=== PATIENT | female | born 1990 | race Caucasian/White ===

== ENCOUNTER 2025-02-25 07:25 | Emergency (ER) | payer OTHER, SELFPAY ==
[2025-02-25 07:27] VITALS: BP 149/97; PULSE 79; RESP 18; TEMP 36.6; O2SAT 100
--- NOTE | 2025-02-25 07:30 | ED.HA ---
HPI - Headache General Chief Complaint: Headache Stated Complaint: migraine for 3 days Time Seen by Provider: 02/25/25 07:30 Source: patient Mode of arrival: ambulatory Limitations: no limitations History of Present Illness HPI Narrative: 35-year-old female with a history of migraine presents to the ED with a 3 day history of -- bilateral moravian pain. She has 12-15 episodes a month. Was nausea without any vomiting. She has photophobia. This is similar to her usual migraine. A pain response to Imitrex. The patient ran out of Imitrex and presented to the ED. no focal neuro deficits. No history of head trauma. MD elicited complaint: headache Onset (ago): day(s) ( Four days) Onset description: gradually Location: temporal Severity: moderate Quality & Timing: aching and throbbing Exacerbating factors: none Relieving factors: nothing Context: occurred at rest Associated symptoms: none Treatments prior to arrival: none Related Data Home Medications ?Medication ?Instructions ?Recorded ?Confirmed ?Last Taken ?Type venlafaxine 150 mg 150 mg PO DAILY 02/25/25 Unknown History capsule,extended release 24 hr (Effexor XR) Allergies Allergy/AdvReac Type Severity Reaction Status Date / Time No Known Allergies Allergy Verified 02/25/25 07:34 Review of Systems Review of Systems: All systems reviewed & are unremarkable except as noted in HPI and below PMFSH Past Medical History Medical History (Updated 02/25/25 @ 08:33 by Chapincito Stephens MD) Migraine Exam Narrative: blood pressure 149/97 Const: General: no acute distress Nutritional Appearance: well nourished Orientation/consciousness: patient oriented x3 Limitations: no limitations HENMT: Head: normal to inspection Ears: external ears normal Face/Nose/Sinus: Normal external nose present Face and sinus: normal facial exam Mouth: Yes Normal oral and palatal mucosa present Throat: posterior oropharynx normal Eyes: Conjunctivae: conjunctivae normal Pupils: Equal, round and reactive pupils present EOM: EOMs intact bilaterally Direct Ophthalmoscopy: no photophobia Neck: Neck: normal visual inspection, no lymphadenopathy and no meningeal signs Chest: Chest palpation & inspection: normal inspection of the chest Resp: Effort & Inspection: normal respiratory effort Auscultation: clear to auscultation bilaterally Cardio: Rate: regular rate Rhythm: regular rhythm GI: GI Palp: Yes Soft to palpation Auscultation: normal bowel sounds Other: no tenderness/ rigidity/rebound : General: Yes no CVA tenderness Back/Spine/Pelvis: Back: no CVA tenderness Skin: General skin exam: normal color Rashes: no rashes Neuro: General: patient oriented x3, moves all extremities, no meningeal signs, no focal motor deficits and CN's II-XI intact bilaterally Cranial nerves: Yes Nystagmus not present Speech: normal speech Gait exam (Neuro): Normal gait present Extrem: General: normal to inspection and no clubbing, cyanosis or edema Psych: Mental Status: mental status grossly normal Affect: normal affect Attitude: cooperative Course Course Emergency Course: migraine/ bilateral headache- headache improved with Imitrex. The patient does not fulfill criteria for migraine. Vital Signs Vital signs: Vital Signs Temperature 36.6 C 02/25/25 07:27 Pulse Rate 79 02/25/25 07:27 Respiratory Rate 18 02/25/25 07:27 Blood Pressure 149/97 H 02/25/25 07:27 Pulse Oximetry 100 02/25/25 07:27 Oxygen Delivery Room Air 02/25/25 07:27 Temperature 36.6 C 02/25/25 07:27 Pulse Rate 79 02/25/25 07:27 Respiratory Rate 18 02/25/25 07:27 Blood Pressure 149/97 H 02/25/25 07:27 Pulse Oximetry 100 02/25/25 07:27 Oxygen Delivery Room Air 02/25/25 07:27 MDM - Headache MDM Narrative Medical decision making narrative: common migraine Differential Diagnosis Differential diagnosis: Likely tension headache Medical Records Attestation: I reviewed the patient's medical records. Lab Data Attestation: I reviewed the patient's lab results. Discharge Plan Discharge Clinical Impression: Migraine Patient Disposition: Home Condition: Stable Instructions: Antibiotic Form, Migraine Headache (ED) Additional Instructions: patient is scheduled to see her primary care physician today Patient Language: German Prescriptions: No Action venlafaxine [Effexor XR] 150 mg capsule,extended release 24hr 150 mg PO DAILY Follow-up/Referrals: Rick Guevara MD [Primary Care Provider] - Time of Disposition: 08:33
[2025-02-25] MEDS: ONDANSETRON HCL ODT 4 MG TABLET PO (07:38)
[2025-02-25] MEDS: SUMAtriptan SUCCINATE 6 MG/0.5 ML VIAL SUB-Q (07:38)
--- OUTSIDE RECORDS SUMMARY | 2025-02-25 08:09 | XMS_ITS | Clinical Summary ---
Author Organization [facility] Address [id number] [place] [id number] Phone Care Team Providers Care Studio Assistant Name Role Phone Unavailable Primary Care Provider Unavailabl e Allergies No known active allergies Medications acetaminophen (TYLENOL) 325 mg tablet Take 1 Tablet (325 mg) by mouth every 6 hours. 01/04/2023 Active ferrous sulfate 325 mg (65 mg iron) tablet Take 1 Tablet (325 mg) by mouth every other day. 30 Tablet 01/04/2023 3:08 PM FATBACK TRIMMER 01/04/2023 Active multivitamin (DAILY-LORI) tablet Take 1 Tablet by mouth daily. 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 No 01/02/2023 Food Insecurity Answer Date Recorded Social/Environmental Concerns No concerns Transportation Needs Answer Date Record ed Social/Environmental Concerns No concerns Housing Stability Answer Date Recorded Social/Environmental Concerns No concerns Utility Needs Answer Date Recorded Social/Environmental Concerns No concerns Comments No Sex and Gender Information Value Date Recorded Sex Assigned at Not on file Legal Sex Female 8:16 AM FATBACK TRIMMER Gender Identity Not on file Sexual Orientation Not on file Last Filed Vital Signs Vital Sign Reading Time Taken Comments Blood Pressure 121/75 01/11/2023 10:11 AM CDT Pulse 81 01/04/2023 11:13 AM FATBACK TRIMMER Temperature 37.2 C (98.9 F) 01/11/2023 10:11 AM CDT Respiratory Rate 16 01/04/2023 11:13 AM FATBACK TRIMMER Oxygen Saturation 100% 01/04/2023 11:13 AM FATBACK TRIMMER Inhaled Oxygen Concentration - - Weight 59.4 kg (131 lb) 01/11/2023 10:11 AM CDT Height 170.2 cm (5' 7 ) 01/11/2023 10:11 AM CDT Body Mass Index 20.52 01/11/2023 10:11 AM CDT Plan of Treatment Health Maintenance Due Date Last Done Comments DTAP/TDAP/TD VACCINES (1 - Tdap) 2010 HEPATITIS B VACCINES (1 of 3 - 19+ 3-dose series) 2010 HPV/Cotest (21-29) 02/24/2012 CERVICAL CANCER SCREENING 2021 HPV/Cotest (30-65) 2021 PAP SMEAR 2021 INFLUENZA VACCINE (#1) 2024 HPV VACCINES Aged Out No longer eligi ble based on patient's age to complete this topic Insurance MEDICAID [place] [employer] (INTERNAL) [facility] [employer] Medicaid Advance Directives For more information, please contact: [phone] * Full Code (Latest Code Status on File) Date Activated Date Inactivated Comments 01/02/2023 6:54 PM 01/04/2023 5:39 PM
[2025-02-25 08:43] VITALS: BP 140/81; PULSE 60; RESP 16; TEMP 36.4; O2SAT 100
--- NOTE | 2025-02-25 09:15 | PC.NURSE ---
2310 pt states he headache is down to a 5 and feeling much better
== END 2025-02-25 08:40 | disposition home or self-care (01) ==
PROVIDERS: Emergency Provider Internal Medicine Critical Care Medicine; PCP Family Medicine
DX: G43.909 Migraine, unspecified, not intractable, without status migrainosus (principal)
CPT/HCPCS: 96372; 99283; A9270; J3030